=== PATIENT | female | born 1980 | race Caucasian/White ===

== ENCOUNTER 2017-01-27 05:18 | Day surgery (SDC) | payer OTHER ==
--- NOTE | 2017-01-23 22:48 | PREOPHP ---
DATE OF ADMISSION: 01/27/2017 REASON FOR ADMISSION: She is coming , the , for a D and C hysteroscopy. HISTORY OF PRESENT ILLNESS: This is a 36-year-old female 2, para 2. The patient with a his tory of colposcopy in 02/2016 and at control that has been not having relations. The patient is not sexually active. ALLERGIES: NO DRUG ALLERGIES. GYNECOLOGIC HISTORY: The patient has a history of heavy periods with clots for 2 days. She has bee n advised for a pelviscopy and a laparoscopic through the uterus with a D and C due to possibility o f fibroids to rule out malignancy. The patient had 2 vaginal deliveries. Otherwise, she has been h ealthy. This patient came a year ago where she was worked up for her periods. The ultrasound late revealed that she had a 7.8 cm uterus early this year. In 2015, the uterus was only 7.6. The pat ieskyler saw the fibroids are in the fundal, they are small rounded, slightly ____ measuring 5 mm ____ f or possible polypectomy and possible D and C for malignancy. The possibility of malignancy was advi sed due to her fibroids and polyps. There is a small percentage of people will turn around with a c ancer and she understands that. The patient has decided to quit her presence of ____. the comparis on of the ultrasound from a year ago revealed that the uterus is anteverted, 7.8 cm with bilateral f ollicles in the left ovary mainly, and also with endometrial polyp. Due to these polyps, a D and C hysteroscopy needs to be done to remove the polyps and to rule out malignancy. There is a family hi story for breast, ovarian cancer, and she has been counseled and the BRCA1 and 2 were ordered. REVIEW OF SYSTEMS: Negative for cardiovascular disease, negative for lung disease, negative for GI disease, endocrine disease. SOCIAL HISTORY: She has no history of smoking or drinking. FAMILY HISTORY: For breast cancer and heart attacks. She is using erythromycin gel. PHYSICAL EXAMINATION: VITAL SIGNS: The blood pressure is 104/60, pulse is 80, respirations 16. She weighs 118. She is 5 feet 6 inches. HEAD AND NECK: Normal. BREASTS: Soft, nontender. No masses. HEART: Normal sinus rhythm. BACK: Normal. ABDOMEN: Soft, nontender. No masses. GENITALIA: With uterus that is retroverted with fibroid consistency. Adnexa are nonpalpable. EXTREMITIES: Normal. DIAGNOSES: 1. Endometrial polyps. 2. Fibroid uterus. 3. Menorrhagia. 4. Cystic ovaries. PLAN: She is undergoing a fractional D and C, hysteroscopy. She has been advised of the possible r isks and possible complications of the procedure with her alternatives and options. Written informa tion was provided. She had no more questions and agreed to go ahead with the procedure with full un derstanding and no more questions. Dictated By: FARA MARISCAL/DANIEL Conf#: [id number] DID#: [id number]
[2017-01-26 17:34] VITALS: BMI 16.2
[~2017-01-27] VITALS: Ht 167.6 cm; Wt 49.2 kg
[2017-01-27] VITALS (11 sets, daily range): BP systolic 102–118; BP diastolic 61–76; PULSE 18–86; RESP 8–18; Ht 167.6 cm; Wt 49.2 kg
[2017-01-27] MEDS ORDERED: CEFAZOLIN 2 GM/50 ML (PMX) 50 ML IVPB ONE (06:40)
[2017-01-27] MEDS ORDERED: DEXTROSE 5%-LR 1,000 ML IV SCH (06:40)
--- NOTE | 2017-01-27 07:04 | HPN ---
Date/Time of Note Date/Time of Note DATE: 01/27/17 TIME: 07:03 Interval H&P Admission Note Pt. seen H&P reviewed: No system changes FARA MOTA MD Jan 27, 2017 07:04
[2017-01-27] MEDS ORDERED: MIDAZOLAM 1 MG/ML 2 ML INJ ONE (07:47)
[2017-01-27] MEDS ORDERED: FENTAnyl 50 MCG/ML VIAL ONE (07:47)
[2017-01-27] MEDS ORDERED: PROPOFOL 20 ML ONE (07:47)
[2017-01-27] MEDS ORDERED: LIDOCAINE 1% (MDV) 20 ML INJ ONE (07:55)
[2017-01-27] MEDS ORDERED: FAMOTIDINE 20 MG INJ ONE (08:02)
[2017-01-27] MEDS ORDERED: DEXAMETHASONE 4 MG/ML 1 ML INJ ONE (08:02)
[2017-01-27] MEDS ORDERED: ONDANSETRON 4 MG INJ ONE (08:02)
[2017-01-27] MEDS ORDERED: CEFAZOLIN 1 GM INJ ONE (08:20)
[2017-01-27] MEDS ORDERED: EPHEDrine SULFATE 50 MG/5 ML SYG ONE (08:20)
[2017-01-27] MEDS ORDERED: VASOPRESSIN 20 UNITS INJ ONE (08:35)
[2017-01-27] MEDS ORDERED: OXYTOCIN 10 UNIT INJ ONE (08:35)
[2017-01-27] MEDS ORDERED: SILVER NITRATE SWAB ONE (08:36)
--- NOTE | 2017-01-27 08:53 | PD.PPDC ---
IT ADMIN Discharge Instruction Condition Patient Condition: Good Diet Diet: Resume Regular Diet Activity/Restrictions Activity: Normal Activity May Shower Restrictions: No Exercising No Lifting No Driving No Sexual Activity Nothing in the Vagina No [place] No Tampons, douche Follow-up Follow-up with Physician: 2, Week/Weeks Return to clinic for [employer] BOSS Instructions: Fever greater than 101 Chills Worsening abdominal pain Excessive Vaginal Bleeding More than 2 pads per hour Unable to tolerate diet FARA MOTA MD Jan 27, 2017 08:53
[2017-01-27] MEDS ORDERED: HYDROmorphONE (0.2 MG/ML) 10ML SYG IV PRN ×2 (09:00)
[2017-01-27] MEDS ORDERED: MEPERIDINE 25 MG INJ IV PRN (09:00)
[2017-01-27] MEDS ORDERED: PROCHLORPERAZINE 10 MG INJ IV PRN (09:00)
--- NOTE | 2017-01-27 09:00 | OPR ---
Date/Time of Note Date/Time of Note DATE: 01/27/17 TIME: 08:54 Operative Report Procedure Date: Jan 27, 2017 Preoperative Diagnosis endometrial polyps fibroid uterus menorrhagia cystic ovaries Postoperative Diagnosis same Operation Performed hysteroscopy D&C endometrial ablation with symphiom device Surgeon: FARA MOTA MD Anesthesia: general Anesthesiologist: GEOVANY ALMAGUER DO Estimated Blood Loss: minimal Pt Condition Post Procedure: stable Disposition: PACU FARA MOTA MD Jan 27, 2017 09:00
--- NOTE | 2017-01-27 15:57 | RADRPT ---
Vent Rate: 69 bpm RR Interval: 0 msec FL Interval: 168 msec QRS Duration: 84 msec QT Interval: 394 msec QTC Interval: 422 msec P-R-T [place]: 64 - 70 - 61 degrees Normal sinus rhythm Nonspecific T wave abnormality Abnormal ECG Electronically Signed By: Lorenzo Pulido [id number]
--- NOTE | 2017-01-28 07:23 | OPR ---
DATE OF OPERATION: 01/27/2017 OPERATION PERFORMED: Fractional D and C, hysteroscopy, and endometrial ablation with the devic e. SURGEON: Fara Plata MD ANESTHESIA: General. ANESTHESIOLOGIST: Dr. Soto PREOPERATIVE DIAGNOSES: Endometrial polyps, fibroid uterus, menorrhagia, cystic ovaries. POSTOPERATIVE DIAGNOSIS: Endometrial polyps, fibroid uterus, menorrhagia, cystic ovaries. DESCRIPTION OF PROCEDURE: The patient was given general anesthesia and placed in the lithotomy posi tion. The perineal and vaginal area were prepped and draped. Examination under anesthesia revealed that the uterus was very much prolapsed to a grade 3, where the cervix was about 4 cm at the perine um. The vaginal speculum was applied. The cervix was large and the uterus was felt to be normal size , mobile, and adnexa were nonpalpable. It was a hypertrophic uterus. The cervix was held. Endocer vical curettage was done. The uterus was sounded to a depth of 7 cm and the hysteroscope with the _ ____ device was placed after the dilatation of the #6 Hegar. The visualization of the area revealed that there was abundant tissue with prominent polyps. This device was placed in and the abla tion of the cavity was done with this device that was aspirating the tissue next to it, with no comp lications. The anterior wall, posterior wall, lateral wall and fundus of the uterus was swiped, wit h this machine cleaning up the surface and then with a straight curettage, we removed all of the rem nants of possible loose tissue. Abundant tissue was obtained. The procedure was finished by removi ng all the instruments. There was some tenaculum bleeding that was treated with silver nitrate. Th e patient tolerated the procedure well. Pitocin was given IV, 20 units, and the patient tolerated th e procedure well and left the OR awake and stable. Sponge counts and instrument counts were correct . Dictated By: FARA MARISCAL/NTS Conf#: [id number] DID#: [id number]
== END 2017-01-27 11:35 | disposition home or self-care (01) ==
LOC: SDS 05:18
PROVIDERS: ATTEND Obstetrics & Gynecology
DX: N84.0 Polyp of corpus uteri (principal); D25.9 Leiomyoma of uterus, unspecified
CPT/HCPCS: 58563; 88305; 93005; J0690; J1100; J1170; J2250; J2405; J2590; J3010; J7121; Z7512; Z7610